=== PATIENT | female | born 1985 | race Caucasian/White ===

== ENCOUNTER → 2017-05-21 14:30 | Outpatient (CLI) | payer BC, SELFPAY ==
[2017-05-21 16:34] LABS: Group B Strep DNA By PCR POSITIVE (Negative); Probe Check PASS
== END ==
PROVIDERS: Visit Provider Obstetrics & Gynecology
DX: Z36.85 Encounter for antenatal screening for Streptococcus B (principal)
CPT/HCPCS: 87653

== ENCOUNTER 2017-06-06 18:20 | Outpatient (CLI) | payer BC, SELFPAY ==
--- NOTE | 2017-06-06 20:47 | OB.TRI.NOTE ---
History of Present Illness Date of Service: 06/06/17 Was patient seen by the physician?: Yes Reason For Visit: R/O LABOR Date of Service: 06/06/17 Final RAJENDRA: 06/15/17 Final RAJENDRA Source: US <20 weeks Gestational age: 38 Weeks and 5 Days History of Present Illness: 31yo @ 38 5/7wga with painful contraction q1-5 minutes, started approximately 1500h. +FM, no leaking of fluid or vaginal bleeding. Denies headache, vision changes or right upper abdominal pain. Physical Exam Vitals: 152/87, P 69 General: Alert, Oriented x3, Cooperative, No apparent distress Abdomen: Soft, Non Tender, Non-Distended Extremities:: Other - +2 b/l LE edema to below knee; + 2 brisk b/l LE DTRs, 1 beat clonus bilaterally Estimated gestational size: Appropriate for gestational size Presentation: Cephalic Cervix Dilation (cm): 2 Station: -3 Effacement (%): 50 NST - FHR Rate Baby A Baseline: 130 Variability:: Moderate Accelerations:: 15 x 15 Decelerations:: None NST Reactive:: Yes FHR Category:: Category I Uterine Activity:: 1-2/10 min with irritability intermittently Impression/Plan 31yo @ 38 5/7wga with likely latent labor and elevated BPs. -Will obtain serial BPs, if persistently elevated plan for IOL. No sx preeclampsia. -Repeat SVE 1-2 hours after initial exam. - status reassuring.
[2017-06-06 21:27] VITALS: BMI 29.9
== END 2017-06-06 22:20 | disposition home or self-care (01) ==
LOC: WPOUT 20:03 → WP 20:04
PROVIDERS: Family Provider Family Medicine; PCP Family Medicine; Visit Provider Obstetrics & Gynecology
DX: O47.1 False labor at or after 37 completed weeks of gestation (principal); O13.3 Gestational [pregnancy-induced] hypertension without significant proteinuria, third trimester; Z3A.38 38 weeks gestation of pregnancy
CPT/HCPCS: 59025; 59050; 99218; G0378

== ENCOUNTER 2017-06-12 23:00 | Outpatient (CLI) | payer BC, SELFPAY ==
[2017-06-12 23:36] VITALS: BMI 29.9
[2017-06-13] MEDS: Dextrose 5%-Lactated Ringers 1,000 ML 500 ML IV (02:20)
--- NOTE | 2017-06-13 08:57 | OB.TRI.NOTE ---
History of Present Illness Date of Service: 06/13/17 Was patient seen by the physician?: No Reason For Visit: R/O LABOR Date of Service: 06/13/17 Final RAJENDRA: 06/15/17 Final RAJENDRA Source: US <20 weeks Gestational age: 39 Weeks and 5 Days Home Medications Medication Instructions Recorded Inositol/Q-Mqegn-Qigrajoo 1 each PO DAILY 06/06/17 [Ovasitol Powder Packet] Potassium (Otc) [Potassium Otc] 99 mg PO DAILY 06/06/17 Vits [Prenatabs FA] 1 tablet PO DAILY 06/06/17 Allergies No Known Allergies Allergy (Verified 06/12/17 23:39) Physical Exam General: Alert, Oriented x3, Cooperative, No apparent distress Cardiovascular: Regular rate, Regular Rhythm Lungs: Clear to auscultation, Normal air movement Abdomen: Soft, Non Tender, Non-Distended, Gravid, Appropriate for Gestational Age Extremities:: No edema Estimated gestational size: Appropriate for gestational size Presentation: Cephalic Cervix Dilation (cm): 2 Station: -2 Effacement (%): 50 NST - FHR Rate Baby A Baseline: 140s Variability:: Moderate Accelerations:: 15 x 15 Decelerations:: None NST Reactive:: Yes, Appropriate for gestational age FHR Category:: Category I Uterine Activity:: irreg q 3 to 9 minutes Impression/Plan latent labor. No signs of SROM. Cervix unchanged over 4 + hours of observation. Reassuring FHR tracing.
--- NOTE | 2017-06-13 09:01 | OB.TRI.HP_ITS ---
History of Present Illness Date of Service: 06/13/17 Was patient seen by the physician?: No Reason For Visit: R/O LABOR Date of Service: 06/13/17 Final RAJENDRA: 06/15/17 Final RAJENDRA Source: US <20 weeks Gestational age: 39 Weeks and 5 Days Home Medications Medication Instructions Recorded Inositol/G-Etlqc-Cfmkgata 1 each PO DAILY 06/06/17 [Ovasitol Powder Packet] Potassium (Otc) [Potassium Otc] 99 mg PO DAILY 06/06/17 Vits [Prenatabs FA] 1 tablet PO DAILY 06/06/17 Allergies No Known Allergies Allergy (Verified 06/12/17 23:39) Physical Exam General: Alert, Oriented x3, Cooperative, No apparent distress Cardiovascular: Regular rate, Regular Rhythm Lungs: Clear to auscultation, Normal air movement Abdomen: Soft, Non Tender, Non-Distended, Gravid, Appropriate for Gestational Age Extremities:: No edema Estimated gestational size: Appropriate for gestational size Presentation: Cephalic Cervix Dilation (cm): 2 Station: -2 Effacement (%): 50 NST - FHR Rate Baby A Baseline: 140s Variability:: Moderate Accelerations:: 15 x 15 Decelerations:: None NST Reactive:: Yes, Appropriate for gestational age FHR Category:: Category I Uterine Activity:: irreg q 3 to 9 minutes Impression/Plan latent labor. No signs of SROM. Cervix unchanged over 4 + hours of observation. Reassuring FHR tracing.
== END 2017-06-13 04:45 | disposition home or self-care (01) ==
LOC: WPOUT 23:28 → WP 23:29
PROVIDERS: Family Provider Family Medicine; PCP Family Medicine; Visit Provider Obstetrics & Gynecology
DX: O62.0 Primary inadequate contractions (principal); Z3A.39 39 weeks gestation of pregnancy
CPT/HCPCS: 59025; 59050; 99218; G0378

== ENCOUNTER 2017-06-15 07:05 | Inpatient (IN) | payer BC, SELFPAY ==
[2017-06-15 07:58] LABS: Hematocrit 37.2 % (37-47); Hemoglobin 12.4 g/dl (12.0-15.0); Mean Corp Hgb Conc 33.3 g/gl (32-36); Mean Corpuscular Hgb 30.3 pg (27.0-32.0); Mean Platelet Vol. 11.5 fl (6.2-12.0); Platelet Count 131 K/mm3 (150-450); RBC Distribution Width CV 13.3 % (11.6-14.6); RBC Distribution Width SD 43.2 fl (35.1-43.9); Red Blood Count 4.09 M/mm3 (4.2-5.4)
[2017-06-15 08:01] LABS: Scan Indicated on CBC? Y/N NO
[2017-06-15] MEDS: Oxytocin 30 units/NS 500 ml 30 UNITS/500 ML IV.SOLN IV (08:04)
[2017-06-15] MEDS: Lactated Ringers 1,000 ML 50 ML IV ×3 (08:04→14:12)
--- NOTE | 2017-06-15 11:05 | PCM.PN.BLA ---
Progress Note LABOR PROGRESS NOTE Contractions of varying intensity, but increased frequency. No complaints. AVSS GEN - NAD, AAO x 3 FHR 120, moderate variability, + accelerations, no decelerations TOCO 2/10 min A/P: 31yo @ 40wga for IOL on pitocin, Cat I FHR -GBS pos: post initial dose of PCN -Continue pitocin as tolerated by mother and fetus -Plan for amniotomy at next cervix check. -Maternal and statuses reassuring
--- NOTE | 2017-06-15 12:01 | PCM.PN.BLA ---
Progress Note LABOR PROGRESS NOTE No complaints. AVSS GEN - NAD, AAO x 3 FHR 120, moderate variability, + accelerations, no decelerations TOCO 4/10 min SVE 3/60/-2, moderate and midposition A/P: 31yo @ 40wga, IOL on pitocin, Cat I FHR -Amniotomy performed with clear fluid -Continue pitocin as tolerated by mother and fetus -PCN for GBS ppx
[2017-06-15] MEDS: fentaNYL-bupivacaine (epidural) 100 ML BAG EPIDURAL (13:30)
[2017-06-15] MEDS: Oxytocin 30 units/NS 500 ml 30 UNITS/500 ML IV.SOLN 334 UNITS IV (16:43)
[2017-06-15] MEDS: Oxytocin 30 units/NS 500 ml 30 UNITS/500 ML IV.SOLN 167 UNITS IV (17:13)
--- NOTE | 2017-06-15 17:53 | PCM.OB.VAG ---
- Problem List (1) 40 weeks gestation of Status: Acute (2) (spontaneous vaginal delivery) Status: Acute Vaginal Delivery Maternal Presentation: Elective Induction Method of Induction: Pitocin, Amniotomy Amniotic Membrane Rupture Type: Artificial Amniotic Fluid Description: Clear Final RAJENDRA: 06/15/17 Final RAJENDRA Source: US <20 weeks Gestational age: 40 Weeks and 0 Days Date of Procedure: 06/15/17 Pre-Operative Diagnosis: 40wga, GBS pos Post-Operative Diagnosis: 40wga, GBS pos Surgery/ Procedure Performed: Spontaneous Vaginal Delivery Anesthesiologist: Mara Nickerson Type of Anesthesia: Epidural Description of Procedure: Patient was FD/+4 station on my arrival with Cat I FHR. She pushed to delivery a vigorous female in direct OA. The infant was placed on the maternal abdomen and further attended by the nursery personnel. The cord was doubly clamped and cut at approx 3 minutes of life. Cord blood was obtained. The placenta delivered spontaneously and appeared intact on inspect with an accessory lobe. A second degree perineal laceration was repaired with 3-0 Vicryl Rapide with excellent hemostasis. The fundus was firm at the umbilicus. Presentation: Vertex Placental Delivery Description: Spontaneous Placenta Disposition: [facility] Cord Vessel Description: 3 Vessels Nuchal Cord Compression: Without compression Cord Entanglement: None Drain: Alvarez to straight drain Estimated Blood Loss: 350 A gender: Female (1 minute): 8 (5 minute): 9 Episiotomy Description: None Laceration: Midline, Perineal Extension/lac, 2nd degree Medications given after delivery: IV Pitocin Complications: None
[2017-06-15 18:45] VITALS: BP 134/81; PULSE 92; RESP 18; TEMP 36.6
--- NOTE | 2017-06-15 19:08 | NURSING ---
Rhogam labwork drawn at 1900 via left ac. Sent to lab, pt tolerated well.
[2017-06-15 20:35] VITALS: BP 167/84; PULSE 82; RESP 18; TEMP 36; O2SAT 97
[2017-06-15 20:50] VITALS: BP 140/75
[2017-06-15 23:30] VITALS: BP 142/79; PULSE 60; RESP 18; TEMP 36.7
--- NOTE | 2017-06-16 00:19 | DCINST_ITS ---
Discharge Diet: No Restrictions Discharge Activity: Return to Normal Activity, May Shower, May Take a Tub Bath May resume sexual activity in: 6 weeks Lifting Restrictions: 10-20LB Call your doctor if you observe: Fever of 101 or Higher, Inability to urinate, Inability to have a bowel movement, Using more than one pad per hour, Shortness of breath, Chest pain, Calf discomfort Suture Line Care: Avoid Pulling/Pushing Cleanse incision/area with: Soap & Water Additional Instructions: If you experience any of the following, contact your healthcare provider. * Bleeding that soaks a pad every hour for 2 hours * Fever 100.4 or higher * Unrelieved incision or abdominal pain * Swelling, redness, discharge or bleeding from your incision or episiotomy site * Your incision begins to separate * Problems urinating (including inability to urinate or burning while urinating) . * Visual changes * Severe headache * Flu-like symptoms * Pain or redness in one of both of your breasts * Pain, warmth, tenderness or swelling in your legs, especially the calf area * Frequent nausea and vomiting * Symptoms of depression or anxiety If you experience any of the following, call 911 or go to the nearest Emergency Room. * Chest pain * Problems breathing * Seizure activity * Partial or complete paralysis of a body part, slurred speech, weakness or drooping of the face, or a sudden inability to walk or hold your balance Allergies/Adverse Reactions: Allergies No Known Allergies Allergy (Verified 06/12/17 23:39) Medications to take at Discharge Potassium (Otc) [Potassium OTC] 99 mg PO DAILY 06/06/17 Vits [Prenatabs FA ] 1 tablet PO DAILY 06/06/17 Naproxen [Naprosyn] 1 - 2 tab PO BID PRN PRN #30 tab 06/16/17 Senna/Docusate Sodium [Senokot-S] 1 - 2 tab PO DAILY PRN PRN #60 tab 06/16/17 The following prescriptions were given: Naproxen [Naprosyn] 1 - 2 tab PO BID PRN PRN #30 tab PRN Reason: Mild Pain (-05/18) Senna/Docusate Sodium [Senokot-S] 1 - 2 tab PO DAILY PRN PRN #60 tab PRN Reason: Constipation Please Follow Up With: Delmis Barnett MD When: 6 weeks Primary Care Physician: Julio C Turcios MD [Primary Care Provider] -
[2017-06-16] MEDS: Naproxen 250 MG Tablet PO ×2 (02:19→11:50)
[2017-06-16 04:00] VITALS: BP 136/81; PULSE 81; RESP 18; TEMP 36.3
[2017-06-16 07:36] VITALS: BP 122/75; PULSE 65; RESP 16; TEMP 36.3; O2SAT 99
--- NOTE | 2017-06-16 08:22 | PCM.PN.OB ---
Patient Problems: Active and Suspected Problems 40 weeks gestation of (Acute) (spontaneous vaginal delivery) (Acute) Subjective: Infant cluster fed overnight, but she has a good latch. Lochia is light. Jo is sore, but pain is manageable. She's out of bed and ambulating. No complaints. Objective: AVSS - Physical Exam General: Alert, Oriented x3, Cooperative, No apparent distress HEENT: Atraumatic, Normocephalic Lungs: Normal air movement Cardiovascular: Regular rate, Regular Rhythm Abdomen: Soft, Non Tender, Non-Distended, - - lochia scant, fundus firm and nontender at umbilicus Extremities: No edema, No Calf Tenderness Neurological: Neuro grossly intact Psych/Mental Status: Normal Affect, Appropriate, Alert and oriented to time, place, person, mood and affect Vital Signs Temp Pulse Resp BP Pulse Ox 97.4 F L 65 16 122/75 H 99 06/16/17 07:36 06/16/17 07:36 06/16/17 07:36 06/16/17 07:36 06/16/17 07:36 Oxygen Delivery Method Room Air Weight: 87.09 kg Body Mass Index (BMI) 30.0 Intake and Output for Last 24 Hours 06/14/17 06/15/17 06/16/17 23:59 23:59 23:59 Intake Total 4072 / 4072 Output Total 1500 / 1500 Balance 2572 / 2572 Laboratory Tests Past 24 Hrs 06/15/17 06/15/17 07:30 19:00 Blood Type O NEGATIVE Antibody Screen NEGATIVE Screen NEGATIVE Baby's Blood Type O POSITIVE Baby's RACQUEL NEGATIVE Medical Necessity - Tobacco Use Smoking Status: Never smoker Assessment/Plan Active and Suspected Problems 40 weeks gestation of (Acute) (spontaneous vaginal delivery) (Acute) 31yo PPD#1 s/p doing well. -Rh negative - infant O positive, pt for Rhogam -Rubella immune - -Routine care -Few elevated BPs , pt otherwise asx for preeclampsia, will send CMP, uric acid
[2017-06-16 09:03] LABS: ALB/GLOB Ratio 0.7 RATIO (0.9-2.4); AST(SGOT) 21 U/L (15-37); Alanine Aminotransfer ALT/SGPT 12 U/L (13-56); Albumin, Serum 2.3 g/dL (3.2-5.0); Alkaline Phosphatase 115 U/L (45-117); Anion Gap 9 (5-15); BUN 7 mg/dL (7-18); BUN/Creat Ratio 11.6 RATIO (10-20); Calcium,Total 7.8 mg/dL (8.5-10.1); Chloride 107 mmol/L (98-107); EST Glomerular Filtration Rate 122 mL/min (>60); Est Glom Filt Rate - Afr Amer 148 mL/min (>60); Estimated Creatinine Clearance 132.11 ml/min; Globulin 3.2 g/dL (2.2-4.2); Glucose 74 mg/dL (74-106); Potassium 4.1 mmol/L (3.5-5.1); Protein, Total 5.5 g/dL (6.4-8.2); Sodium Level 139 mmol/L (136-145); Uric Acid 5.1 mg/dL (2.6-6.0)
[2017-06-16] MEDS: Prenatal Vits Tablet 1 TABLET PO (09:30)
[2017-06-16 11:49] VITALS: BP 142/62; PULSE 68; RESP 16; TEMP 36.4; O2SAT 98
[2017-06-16 16:05] VITALS: BP 124/72; PULSE 62; RESP 16; TEMP 36.7; O2SAT 99
[2017-06-16 20:42] VITALS: BP 122/70; PULSE 72; RESP 16; TEMP 36.7
[2017-06-17 01:45] VITALS: BP 121/64; PULSE 62; RESP 18; TEMP 36.7; O2SAT 97
[2017-06-17 07:46] VITALS: BP 125/75; PULSE 92; RESP 16; TEMP 37.2
[2017-06-17 07:47] VITALS: PULSE 92
--- NOTE | 2017-06-17 08:31 | PCM.PN.OB ---
Patient Problems: Active and Suspected Problems 40 weeks gestation of (Acute) (spontaneous vaginal delivery) (Acute) Subjective: No issues overnight. Infant is cluster feeding. Objective: AVSS - Physical Exam General: Alert, Oriented x3, Cooperative, No apparent distress HEENT: Atraumatic, Normocephalic Lungs: Normal air movement Cardiovascular: Regular Rhythm Abdomen: Soft, Non Tender, Non-Distended, - - Fundus firm and nontender Extremities: No Calf Tenderness, - - 1+ b/l LE edema Neurological: Neuro grossly intact Psych/Mental Status: Normal Affect, Appropriate, Alert and oriented to time, place, person, mood and affect Vital Signs Temp Pulse Resp BP Pulse Ox 98.9 F 92 18 125/75 H 97 06/17/17 07:46 06/17/17 07:47 06/17/17 01:45 06/17/17 07:46 06/17/17 01:45 Oxygen Delivery Method Room Air Weight: 87.09 kg Body Mass Index (BMI) 30.0 Intake and Output for Last 24 Hours 06/15/17 06/16/17 06/17/17 23:59 23:59 23:59 Intake Total 4072 / 4072 Output Total 2099 / 2100 Balance 1971 / 1971 Laboratory Tests Past 24 Hrs 06/16/17 08:30 Sodium 139 Potassium 4.1 Chloride 107 Carbon Dioxide 23.0 Anion Gap 9 BUN 7 Creatinine 0.60 Estim Creat Clear Calc 132.11 Est GFR (MDRD) Af Amer 148 Est GFR (MDRD) Non-Af 122 BUN/Creatinine Ratio 11.6 Glucose 74 Uric Acid 5.1 Calcium 7.8 L Total Bilirubin 0.20 AST 21 ALT 12 L Alkaline Phosphatase 115 Total Protein 5.5 L Albumin 2.3 L Globulin 3.2 Albumin/Globulin Ratio 0.7 L Medical Necessity - Tobacco Use Smoking Status: Never smoker Assessment/Plan Active and Suspected Problems 40 weeks gestation of (Acute) (spontaneous vaginal delivery) (Acute) 31yo PPD#2 s/p doing well. -Rh negative - O positive, pt s/p Rhogam -d/c home today
[2017-06-17] MEDS: Senna/Docusate Sodium 1 Tablet PO (08:40)
[2017-06-17] MEDS: Prenatal Vits Tablet 1 TABLET PO (09:56)
--- NOTE | 2017-06-17 10:41 | NURSING ---
This practical nursing teacher reviewed the charting completed by the student nurse this morning 06/17/17 and it is complete.
== END 2017-06-17 10:00 | disposition home or self-care (01) | DRG 775 ==
PROVIDERS: Admitting Provider Obstetrics & Gynecology; Family Provider Family Medicine; PCP Family Medicine; Visit Provider Obstetrics & Gynecology
DX: O70.1 Second degree perineal laceration during delivery (principal); O99.820 Streptococcus B carrier state complicating pregnancy; O99.89 Other specified diseases and conditions complicating pregnancy, childbirth and the puerperium; R03.0 Elevated blood-pressure reading, without diagnosis of hypertension; Z3A.40 40 weeks gestation of pregnancy; Z37.0 Single live birth
CPT/HCPCS: 59025; 59050; 80053; 84550; 85027; 85461; 86850; 86900; 90384; 99218; J7120; G0378; J2790

== ENCOUNTER → 2017-08-23 13:05 | Outpatient (CLI) | payer BC, SELFPAY ==
[2017-08-23 15:02] LABS: Chlamydia Trachomatis by PCR Negative (Negative); Neisserai gonorrhoeae by PCR Negative (Negative); Probe Check PASS; Sample Adequacy Control PASS; Specimen Processing Control PASS
== END ==
PROVIDERS: Family Provider Family Medicine; PCP Family Medicine; Visit Provider Obstetrics & Gynecology
DX: Z11.3 Encounter for screening for infections with a predominantly sexual mode of transmission (principal)
CPT/HCPCS: 87491; 87591

== ENCOUNTER → 2017-09-27 09:59 | Outpatient (CLI) | payer BC, SELFPAY ==
[2017-09-27 12:13] LABS: Free T3 2.9 pg/mL (2.18-3.98); T4 Free Direct 0.92 ng/dL (0.76-1.46); Thyroid Stim Hormone (TSH) 1.69 uIU/mL (0.358-3.74)
== END ==
PROVIDERS: Visit Provider Obstetrics & Gynecology
DX: N92.6 Irregular menstruation, unspecified (principal); R61 Generalized hyperhidrosis; R23.2 Flushing
CPT/HCPCS: 36415; 84439; 84443; 84481

== ENCOUNTER → 2020-03-31 17:22 | Outpatient (CLI) | payer BC, SELFPAY ==
[2020-04-06 15:42] LABS: HPV APTIMA, High Risk Negative (Negative)
== END ==
PROVIDERS: PCP Family Medicine; Visit Provider Obstetrics & Gynecology
DX: A60.04 Herpesviral vulvovaginitis (principal); N73.8 Other specified female pelvic inflammatory diseases; Z11.3 Encounter for screening for infections with a predominantly sexual mode of transmission
CPT/HCPCS: 87624; 88175; G0145

== ENCOUNTER → 2020-09-01 16:58 | Outpatient (CLI) | payer BC, SELFPAY ==
[2020-09-05 04:06] LABS: Chlamydia By Nucleic Acid AMP Negative (Negative)
[2020-09-08 14:58] LABS: Gonococcus By Nucleic Acid AMP Negative (Negative)
== END ==
PROVIDERS: PCP Family Medicine; Visit Provider Obstetrics & Gynecology
DX: Z11.3 Encounter for screening for infections with a predominantly sexual mode of transmission (principal)
CPT/HCPCS: 87491; 87591